=== PATIENT | female | born 1970 | race Caucasian/White ===

== ENCOUNTER 2016-08-14 09:47 | Emergency (ER) | payer BC ==
[2016-08-14 11:54] VITALS: BP 110/60
--- NOTE | 2016-08-14 12:15 | UC ---
Throat Pain/Nasal Charlie HPI - HPI Summary HPI Summary: sudden onset left maxillary sinus pressure, left eye pain and post nasal drip. is not giving her a headache. - History of Current Complaint Chief Complaint: UCRespiratory Stated Complaint: SINUS COMPLAINT Time Seen by Provider: 08/14/16 11:58 Hx Obtained From: Patient Hx Last Menstrual Period: 08/08/16 ?: No Onset/Duration: Sudden Onset, Lasting Days Severity: Moderate Pain Intensity: 6 Pain Scale Used: 0-10 Numeric Cough: None Associated Signs & Symptoms: Positive: Sinus Discomfort, Nasal Discharge, Fever - Epiglottits Risk Factors Epiglottis Risk Factors: Negative - Allergies/Home Medications Allergies/Adverse Reactions: Allergies Allergy/AdvReac Type Severity Reaction Status Date / Time Minocycline Allergy Anaphylatic Verified 08/14/16 11:48 Shock Penicillins Allergy Anaphylatic Verified 08/14/16 11:48 Shock Tetracyclines & Related Allergy Anaphylatic Verified 08/14/16 11:48 Shock Home Medications: Home Medications ValACYclovir (*) [Valtrex 500 mg (NF)] 1,000 mg PO DAILY 08/14/16 [History Confirmed 08/14/16] busPIRone TAB* [Buspar TAB*] 5 mg PO TID PRN 08/14/16 [History Confirmed ] PMH/Surg Hx/FS Hx/Imm Hx Previously Healthy: Yes Endocrine History Of: Reports: Thyroid Disease Denies: Diabetes Cardiovascular History Of: Denies: Cardiac Disorders, Hypertension Respiratory History Of: Denies: Asthma GI/ History Of: Denies: Ulcer Psychological History Of: Reports: Depression Cancer History Of: Denies: Lung Cancer, Colorectal Cancer, Breast Cancer, Prostate Cancer, Cervical Cancer - Surgical History Surgical History: Yes Surgery Procedure, Year, and Place: - Family History Known Family History: Negative: Cardiac Disease, Hypertension - Social History Alcohol Use: None Substance Use Type: None Smoking Status (MU): Never Smoked Tobacco - Immunization History Most Recent Influenza Vaccination: 2016 Review of Systems Skin: Negative Eyes: Negative ENT: Nasal Discharge Respiratory: Negative Cardiovascular: Negative Gastrointestinal: Negative Genitourinary: Negative Motor: Negative Neurovascular: Negative Musculoskeletal: Negative Neurological: Headache Psychological: Negative All Other Systems Reviewed And Are Negative: Yes Physical Exam Triage Information Reviewed: Yes Appearance: Well-Nourished, Ill-Appearing, Pain Distress Vital Signs: Initial Vital Signs Temp 99.5 F 08/14/16 11:50 Pulse 60 08/14/16 11:50 Resp 18 08/14/16 11:50 BP 110/60 08/14/16 11:50 Pulse Ox 100 08/14/16 11:50 Vital Signs Reviewed: Yes Eye Exam: Normal Eyes: Positive: Conjunctiva Clear ENT: Positive: Nasal congestion - maxillary pain on left side, frontal sinus pressur himanshu palpation Dental Exam: Normal Neck exam: Normal Neck: Positive: Supple, Nontender, No Lymphadenopathy Respiratory Exam: Normal Respiratory: Positive: Chest non-tender, Lungs clear, Normal breath sounds Cardiovascular Exam: Normal Cardiovascular: Positive: RRR, No Murmur, Pulses Normal Abdominal Exam: Normal Abdomen Description: Positive: Nontender, No Organomegaly, Soft Bowel Sounds: Positive: Present Musculoskeletal Exam: Normal Musculoskeletal: Positive: Strength Intact, ROM Intact, No Edema Neurological Exam: Normal Neurological: Positive: Alert, Muscle Tone Normal Psychological Exam: Normal Skin Exam: Normal Throat Pain/Nasal Course/Dx - Course Course Of Treatment: hx obtained, exam performed. educated on abx use and incidence of viral sinusitis. patient requesting ABX, will wait a few days to try supportive treatement before starting. - Differential Dx/Diagnosis Differential Diagnosis/HQI/PQRI: Influenza, Laryngitis, Otitis Media, Pharyngitis, Sinusitis, Tonsillitis, URI Provider Diagnoses: sinusitis Discharge - Discharge Plan Condition: Stable Disposition: HOME Patient Education Materials: Sinusitis (ED) Additional Instructions: use the flonase and neti pot to attempt to clean the out the sinuses, if no impromvement in the next few days follow up with the zithromax per instructions.
== END 2016-08-14 12:20 | disposition home or self-care (01) ==
LOC: UCCORT 09:47
DX: J32.9 Chronic sinusitis, unspecified (principal); Z88.0 Allergy status to penicillin
CPT/HCPCS: 99211; G0463

== ENCOUNTER 2017-09-05 15:47 | Emergency (ER) | payer BC ==
[2017-09-05 16:29] VITALS: BP 120/66
--- NOTE | 2017-09-05 16:55 | UC ---
Throat Pain/Nasal Charlie HPI - HPI Summary HPI Summary: 47 yo female with 5-6 wk hx of sinus pain/post nasal drip/sore throat no fever low energy - History of Current Complaint Chief Complaint: UCRespiratory Stated Complaint: ST Time Seen by Provider: 09/05/17 16:28 Hx Last Menstrual Period: 08/08/16 Onset/Duration: Sudden Onset Severity: Moderate Pain Intensity: 5 Pain Scale Used: 0-10 Numeric Cough: Other: Associated Signs & Symptoms: Positive: Sinus Discomfort - Epiglottits Risk Factors Epiglottis Risk Factors: Negative - Allergies/Home Medications Allergies/Adverse Reactions: Allergies Allergy/AdvReac Type Severity Reaction Status Date / Time Penicillins Allergy Anaphylatic Verified 09/05/17 16:30 Shock tetracycline Allergy Anaphylatic Verified 09/05/17 16:30 Shock PMH/Surg Hx/FS Hx/Imm Hx Previously Healthy: Yes - Surgical History Surgical History: Yes Surgery Procedure, Year, and Place: - Family History Known Family History: Positive: Hypertension, Diabetes Negative: Cardiac Disease - Social History Alcohol Use: None Substance Use Type: None Smoking Status (MU): Never Smoked Tobacco - Immunization History Most Recent Influenza Vaccination: 2015 Review of Systems Constitutional: Fatigue Skin: Negative Eyes: Negative ENT: Sore Throat, Nasal Discharge, Sinus Congestion, Sinus Pain/Tenderness Respiratory: Negative Cardiovascular: Negative Gastrointestinal: Negative Genitourinary: Negative Motor: Negative Neurovascular: Negative Musculoskeletal: Negative Neurological: Negative Psychological: Negative Is Patient Immunocompromised?: No All Other Systems Reviewed And Are Negative: Yes Physical Exam Triage Information Reviewed: Yes Appearance: Well-Appearing, No Pain Distress, Well-Nourished Vital Signs: Initial Vital Signs Temp 100.6 F 09/05/17 16:26 Pulse 57 09/05/17 16:26 Resp 18 09/05/17 16:26 BP 120/66 09/05/17 16:26 Pulse Ox 100 09/05/17 16:26 Vital Signs Reviewed: Yes Eyes: Positive: Conjunctiva Clear ENT: Positive: Nasal congestion, Sinus tenderness, Uvula midline. Negative: Hearing grossly normal, TMs normal - rigth tm bulging/bubbles middle ear, Tonsillar swelling, Tonsillar exudate, Trismus, Muffled voice, Hoarse voice Dental Exam: Normal Neck: Positive: Supple, Nontender, No Lymphadenopathy Respiratory: Positive: Lungs clear, Normal breath sounds, No respiratory distress Cardiovascular: Positive: RRR, No Murmur Abdomen Description: Positive: No Organomegaly Musculoskeletal: Positive: ROM Intact, No Edema Neurological: Positive: Alert Psychological Exam: Normal Skin Exam: Normal Throat Pain/Nasal Course/Dx - Differential Dx/Diagnosis Provider Diagnoses: acute sinusitis. right serous otitis media Discharge - Discharge Plan Condition: Stable Disposition: HOME Prescriptions: Clarithromycin TAB* [Biaxin 500 MG TAB*] 500 mg PO BID #20 tab Patient Education Materials: Sinusitis (ED), Serous Otitis Media (ED) Referrals: Ellen Cat RN [Primary Care Provider] - 5 Days (if not better) Additional Instructions: warm facial compresses saline nasal spray use your flonase
== END 2017-09-05 17:10 | disposition home or self-care (01) ==
LOC: UCCORT 15:47
DX: J01.90 Acute sinusitis, unspecified (principal); H65.91 Unspecified nonsuppurative otitis media, right ear; Z88.0 Allergy status to penicillin; Z88.1 Allergy status to other antibiotic agents
CPT/HCPCS: 87651; 99212; G0463

== ENCOUNTER 2017-09-13 15:12 | Emergency (ER) | payer BC ==
--- OUTSIDE RECORDS SUMMARY | 2017-09-13 15:29 | XMS REPORT ---
:1970 External Reference #:[id number] Author Organization [facility] [employer] Address [address] [place] [address] Phone [phone] Care Team Providers Name Role Phone Dominik Green M.D. Care Team Information Director Institution Unavailable Payers Type Date Identification Numbers Payment Provider Subscriber Commercial Policy Number: [id number] CHEIKH Kourtney Worthy PayID: [id number] [address] [address] [place] [address] Problems Description No Information Family History Date Family Member(s) Problem(s) Comments Father Prostate Cancer Father Colon Cancer Mother Hypothyroidism Mother Glaucoma Social History Type Date Description Comments Cigarette Use Never Smoked Cigarettes ETOH Use Rare Use Of Alcohol Recreational Drug Use Never Used Drugs Allergies, Adverse Reactions, Alerts Date Description Reaction Status Severity Comments 09/08/2017 Penicillins Urticaria active Moderate 09/08/2017 Cyclines Anaphylaxis active Severe Medications Medication Date Status Form Strength Qnty SIG Indications Ordering Provider Wellbutrin XL Active Tablets ER 300mg 1 by Unknown 00 24HR mouth every day Buspirone HCL Active Tablets 5mg 1 by Unknown 00 mouth every day Synthroid Active Tablets 75mcg 1 by Unknown 00 mouth every day Vital Signs Date Vital Result Comment 09/08/2017 Weight 142.12 lb Height 67 inches 5'7" BMI (Body Mass Index) 22.3 kg/m2 BP Systolic 105 mmHg BP Diastolic 66 mmHg Heart Rate 58 /min O2 % BldC Oximetry 98 % Body Temperature 100.2 F Pain Level 0 Results Description No Information Procedures Description No Information Plan of Care No Information Available
[2017-09-13 15:37] VITALS: BP 122/65
--- NOTE | 2017-09-13 16:00 | UC ---
Throat Pain/Nasal Charlie HPI - HPI Summary HPI Summary: 47 yo woman with PMHx of hypothyroidism and cc of sore throat , for 34 dyas. . Cough today. No fever. Was ill with similar symptoms about 10 days ago and was treated with clarithromycin for 2.5 days. She developed tachycardia and stopped the antibiotic. She also developed tinnitus. Now, she has used Robitussin extreme cold and tessalon perles and one dose of clarithromycin at 03:30 today. she has the tinnitus again. Was tested for strep the first time and was negative. - History of Current Complaint Chief Complaint: UCRespiratory Stated Complaint: RESPIRATORY Time Seen by Provider: 09/13/17 15:29 Hx Last Menstrual Period: 08/08/16 Pain Intensity: 5 - Allergies/Home Medications Allergies/Adverse Reactions: Allergies Allergy/AdvReac Type Severity Reaction Status Date / Time Penicillins Allergy Anaphylatic Verified 09/13/17 15:37 Shock tetracycline Allergy Anaphylatic Verified 09/13/17 15:37 Shock PMH/Surg Hx/FS Hx/Imm Hx Previously Healthy: Yes Endocrine History: Thyroid Disease, Hypothyroidism - Healthy otherwise. - Surgical History Surgical History: Yes Surgery Procedure, Year, and Place: - Family History Known Family History: Positive: Hypertension, Diabetes Negative: Cardiac Disease - Social History Alcohol Use: None Substance Use Type: None Smoking Status (MU): Never Smoked Tobacco - Immunization History Most Recent Influenza Vaccination: 2016 Review of Systems Constitutional: Negative Skin: Negative Eyes: Negative ENT: Sore Throat, Nasal Discharge, Sinus Congestion Respiratory: Cough Cardiovascular: Negative Gastrointestinal: Negative Genitourinary: Negative Motor: Negative Neurovascular: Negative Musculoskeletal: Negative Neurological: Negative Psychological: Negative Is Patient Immunocompromised?: No All Other Systems Reviewed And Are Negative: Yes Physical Exam Triage Information Reviewed: Yes Appearance: Well-Appearing Vital Signs: Initial Vital Signs Temp 99.8 F 09/13/17 15:30 Pulse 58 09/13/17 15:30 Resp 16 09/13/17 15:30 BP 122/65 09/13/17 15:30 Pulse Ox 99 09/13/17 15:30 Vital Signs Reviewed: Yes Eye Exam: Normal ENT: Positive: Sinus tenderness. Negative: Hearing grossly normal, TM bulging - throat is mildly erythematous, TM dull, TM red, Hoarse voice Dental Exam: Normal Neck exam: Normal Respiratory Exam: Normal Respiratory: Positive: Lungs clear, No respiratory distress. Negative: Accessory muscle use Cardiovascular Exam: Normal Cardiovascular: Positive: RRR, No Murmur, Pulses Normal, Brisk Capillary Refill Abdominal Exam: Normal Bowel Sounds: Positive: Present Musculoskeletal Exam: Normal Neurological Exam: Normal Neurological: Positive: Alert, Muscle Tone Normal Psychological Exam: Normal Skin Exam: Normal - good turgor Diagnostics - Laboratory Diagnostic Studies Completed/Ordered: strep - negative. Flu- negative. Throat Pain/Nasal Course/Dx - Differential Dx/Diagnosis Differential Diagnosis/HQI/PQRI: Pharyngitis, Sinusitis, URI Provider Diagnoses: URI, sinusitis. Discharge - Discharge Plan Condition: Stable Disposition: HOME Prescriptions: Clindamycin Cap(NF) [Clindamycin Cap 300 mg Cap(NF)] 300 mg PO BID 10 Days #20 cap Patient Education Materials: Rhinosinusitis (ED) Print Language: TELUGU Referrals: Elsie BRADFORD,Ellen Arcos [Primary Care Provider] - Additional Instructions: May use plain Mucinex 1 tab every 12 hours. Run a humidifier or vaporizer. Drink enough fluids to stay well hydrated. May continue Tessalon perles as needed. Avoid decongestants such as phenylephrine or pseudoephedrine.
== END 2017-09-13 16:37 | disposition home or self-care (01) ==
LOC: UCCORT 15:12
DX: J06.9 Acute upper respiratory infection, unspecified (principal); J32.9 Chronic sinusitis, unspecified; E03.9 Hypothyroidism, unspecified; Z88.1 Allergy status to other antibiotic agents; Z88.0 Allergy status to penicillin
CPT/HCPCS: 87502; 87651; 99212; G0463